=== PATIENT | female | born 1970 | race Caucasian/White ===

== ENCOUNTER 2021-07-30 19:13 | Inpatient (IN) ==
[2021-07-30] MEDS ORDERED: MORPHINE 2 MG/1 ML SYRINGE IV STA (22:02)
[2021-07-30] MEDS ORDERED: VANCOMYCIN INJ 1,500 MG in SODIUM CHLORIDE 0.9% 250 ML IV STA (22:02)
[2021-07-30] MEDS ORDERED: VANCOMYCIN INJ 1,500 MG in SODIUM CHLORIDE 0.9% 500 ML IV STA (22:06)
[2021-07-30 22:53] LABS: Basophils % 0.4 % (0.0-0.8); Eosinophils # 0.1 10*3/uL (0.0-0.87); Eosinophils % 0.9 % (0.00-10.9); Hematocrit 34.7 VOL% (35.7-47.0); Immature Granulocytes % 0.5 %; Immature Granulocytes Absolute 0.05 #; Lymphocytes # 2.3 10*3/uL (1.4-4.0); Lymphocytes % 22.5 % (21.3-54.2); Mean Corpuscular HGB Conc 31.7 GM/DL (32-36); Mean Corpuscular Volume 92.8 FL (87-102); Mean Platelet Volume 11.4 FL (9.6-12.0); Monocytes # 0.7 10*3/uL (0.11-0.8); Monocytes % 7.2 % (1.7-12.7); Neutrophils % 68.5 % (38.7-73.9); Platelet Count 278 T/CUMM (130-400); Red Blood Count 3.74 MC/CUMM (3.8-5.5); Red Cell Distribution Width 12.9 % (9.3-17.3); White Blood Count 10.3 T/CUMM (4-12)
[2021-07-30 23:19] LABS: Albumin 3.2 G/DL (3.4-5.0); Bilirubin,Total 0.6 MG/DL (0.20-1.00); Calcium 8.6 MG/DL (8.5-10.1); Osmolality,Calculated 250.6 MOS/KG (273-304); Potassium 4.6 MMOL/L (3.5-5.1); Total Protein 7.9 G/DL (6.4-8.2)
[2021-07-31] MEDS ORDERED: ONDANSETRON 4 MG/2 ML VIAL IV PRN (01:08)
[2021-07-31] MEDS ORDERED: GLUCAGON 1 MG VIAL IM PRN (01:08)
[2021-07-31] MEDS ORDERED: DEXTROSE 10% 250 ML BAG IV PRN (01:21)
[2021-07-31] MEDS: SODIUM CHLORIDE 0.9% 1,000 ML IV SCH ×3 (04:19→21:00)
[2021-07-31] MEDS: MORPHINE 2 MG/1 ML SYRINGE IV PRN ×3 (04:33→20:57)
[2021-07-31 04:50] LABS: Basophils % 0.4 % (0.0-0.8); Eosinophils % 0.3 % (0.00-10.9); Hematocrit 32.2 VOL% (35.7-47.0); Hemoglobin 10.2 GM/DL (12.0-16.0); Immature Granulocytes % 0.6 %; Immature Granulocytes Absolute 0.06 #; Lymphocytes # 1.7 10*3/uL (1.4-4.0); Lymphocytes % 18.2 % (21.3-54.2); Mean Corpuscular HGB Conc 31.7 GM/DL (32-36); Mean Corpuscular Volume 92.8 FL (87-102); Mean Platelet Volume 11.3 FL (9.6-12.0); Monocytes # 0.7 10*3/uL (0.11-0.8); Monocytes % 6.9 % (1.7-12.7); Neutrophils % 73.6 % (38.7-73.9); Platelet Count 281 T/CUMM (130-400); Red Blood Count 3.47 MC/CUMM (3.8-5.5); Red Cell Distribution Width 12.7 % (9.3-17.3); White Blood Count 9.4 T/CUMM (4-12)
[2021-07-31] MEDS: LEVOTHYROXINE 50 MCG TABLET PO SCH (04:59)
[2021-07-31 05:18] LABS: Albumin 2.8 G/DL (3.4-5.0); Bilirubin,Total 0.4 MG/DL (0.20-1.00); Calcium 8.9 MG/DL (8.5-10.1); Potassium 3.8 MMOL/L (3.5-5.1); Total Protein 7.9 G/DL (6.4-8.2)
[2021-07-31] MEDS ORDERED: MAGNESIUM SULF RIDER 4 GM/100 ML PREMIX IV ONE (07:18)
[2021-07-31] MEDS: PREGABALIN 75 MG CAPSULE PO SCH ×2 (08:16→20:57)
[2021-07-31] MEDS: LISINOPRIL/HCTZ 20-12.5 MG TABLET PO SCH (08:16)
[2021-07-31 12:20] LABS: Calcium 8.8 MG/DL (8.5-10.1); Osmolality,Calculated 271.1 MOS/KG (273-304); Potassium 3.7 MMOL/L (3.5-5.1)
[2021-07-31] MEDS: CLINDAMYCIN INJ 300 MG/50 ML PREMIX IV SCH ×2 (12:43→20:56)
[2021-07-31] MEDS: VANCOMYCIN INJ 1,500 MG in SODIUM CHLORIDE 0.9% 500 ML IV SCH (16:56)
[2021-07-31] MEDS ORDERED: BENZOCAINE 20% ORAL GEL 11.9 GM TUBE TOP PRN (18:22)
[2021-07-31] MEDS: ZOLPIDEM 5 MG TABLET PO SCH ×2 (20:58→21:49)
[2021-07-31] MEDS ORDERED: ZOLPIDEM 5 MG TABLET PO SCH (22:00)
[2021-08-01] MEDS: CLINDAMYCIN INJ 300 MG/50 ML PREMIX IV SCH ×2 (03:18→09:28)
[2021-08-01 04:52] LABS: Basophils % 0.4 % (0.0-0.8); Eosinophils % 0.4 % (0.00-10.9); Immature Granulocytes % 0.4 %; Immature Granulocytes Absolute 0.03 #; Lymphocytes # 2.2 10*3/uL (1.4-4.0); Lymphocytes % 30.1 % (21.3-54.2); Mean Corpuscular HGB Conc 31.3 GM/DL (32-36); Mean Corpuscular Volume 92.8 FL (87-102); Mean Platelet Volume 11.2 FL (9.6-12.0); Monocytes # 0.6 10*3/uL (0.11-0.8); Neutrophils % 60.7 % (38.7-73.9); Platelet Count 262 T/CUMM (130-400); Red Blood Count 3.45 MC/CUMM (3.8-5.5); Red Cell Distribution Width 12.3 % (9.3-17.3); White Blood Count 7.1 T/CUMM (4-12)
[2021-08-01 05:10] LABS: Calcium 8.5 MG/DL (8.5-10.1); Osmolality,Calculated 268.1 MOS/KG (273-304); Potassium 3.5 MMOL/L (3.5-5.1)
[2021-08-01] MEDS: LEVOTHYROXINE 50 MCG TABLET PO SCH (05:52)
[2021-08-01] MEDS: LISINOPRIL/HCTZ 20-12.5 MG TABLET PO SCH (09:30)
[2021-08-01] MEDS: PREGABALIN 75 MG CAPSULE PO SCH (09:30)
[2021-08-01] MEDS: MORPHINE 2 MG/1 ML SYRINGE IV PRN (09:30)
[2021-08-01] MEDS: SODIUM CHLORIDE 0.9% 1,000 ML IV SCH (09:31)
[2021-08-01] MEDS: VANCOMYCIN INJ 1,500 MG in SODIUM CHLORIDE 0.9% 500 ML IV SCH (10:50)
[2021-08-01 11:47] VITALS: BP 120/78
== END 2021-08-01 14:30 | disposition home or self-care (01) | DRG 603 ==
LOC: N.ED 19:13 → SUATTDRO 07-31 01:08 → N.EDINP 07-31 01:08 → N.3E 07-31 03:48
PROVIDERS: ADMIT Family Medicine; ATTEND Internal Medicine